=== PATIENT | male | born 1980 | race American Indian/Alaskan Native ===

== ENCOUNTER 2016-10-28 14:40 | Inpatient (IN) | payer OTHER ==
[2016-10-28 15:19] LABS: Basophils % (Auto) 0.3 % (0.0-1.8); Eosinophils % (Auto) 1.1 % (0.0-4.3); Hematocrit 49.1 % (35.5-45.6); Mean Corpuscular HGB Conc 33 % (32-34); Mean Corpuscular Hemoglobin 29 pg (28-32); Mean Corpuscular Volume 90 fl (84-94); Platelet Count 179 K/mm3 (140-440); Red Blood Count 5.44 M/mm3 (3.65-5.03); Red Cell Distribution Width 15.4 % (13.2-15.2); White Blood Count 10.9 K/mm3 (4.5-11.0)
[2016-10-28 15:38] LABS: Anion Gap 17 mmol/L; BUN/Creatinine Ratio 11.25; Blood Urea Nitrogen 9 mg/dL (9-20); Calcium 8.4 mg/dL (8.4-10.2); Carbon Dioxide 25 mmol/L (22-30); Chloride 100.7 mmol/L (98-107); Glucose 112 mg/dL (75-100); Potassium 4.1 mmol/L (3.6-5.0); Sodium 139 mmol/L (137-145)
[2016-10-28] MEDS ORDERED: TORADOL IV ONE (18:25)
--- NOTE | 2016-10-28 18:44 | Emergency Department Report ---
ED Chest Pain HPI - General Chief Complaint: Chest Pain Stated Complaint: CHEST PAIN/LUIS MANUEL Time Seen by Provider: 10/28/16 18:03 Source: patient Mode of arrival: Ambulatory Limitations: No Limitations - History of Present Illness Initial Comments: 36-year-old male with no past medical history is presented to the ED complaining of chest pain. Onset started 1 day prior to ED arrival. No inciting factors. Pain is located in the right side of the chest, nonradiating , no laxity or worsening factors. Patient states pain is constant. Pertinent negatives: Fever/chills, cough, hemoptysis, abdominal pain, lotion any edema, history of DVT/PE, history of ME. MD Complaint: chest pain -: Gradual, days(s) (1) Onset: during rest Pain Location: right chest Pain Radiation: none Severity: severe Severity scale (0 -10): 8 Quality: aching Consistency: constant Improves With: nothing Worsens With: nothing re: denies: nausea, vomting, diaphoresis, dyspnea, sense of impending doom Other Symptoms: denies: cough, fever, syncope, rash, acid taste in mouth, palpitations, burping - Related Data On Oral Contraceptives: No Home Medications Medication Instructions Recorded Confirmed Last Taken No Known Home Medications [No 10/28/16 10/28/16 Unknown Reported Home Medications] Allergies Allergy/AdvReac Type Severity Reaction Status Date / Time No Known Allergies Allergy Unverified 10/28/16 14:56 Heart Score - HEART Score History: Slightly suspicious EKG: Normal Age: < 45 Risk factors: No known risk factors Troponin: < normal limit HEART Score: 0 ED Review of Systems ROS: Stated complaint: CHEST PAIN/LUIS MANUEL Other details as noted in HPI Constitutional: denies: chills, fever Eyes: denies: eye pain, eye discharge, vision change ENT: denies: ear pain, throat pain Respiratory: denies: cough, shortness of breath, wheezing Cardiovascular: chest pain. denies: palpitations Endocrine: no symptoms reported Gastrointestinal: denies: abdominal pain, nausea, diarrhea Genitourinary: denies: urgency, dysuria Musculoskeletal: denies: back pain, joint swelling, arthralgia Skin: denies: rash, lesions Neurological: denies: headache, weakness, paresthesias Psychiatric: denies: anxiety, depression Hematological/Lymphatic: denies: easy bleeding, easy bruising ED Past Medical Hx - Past Medical History Previous Medical History?: No - Surgical History Past Surgical History?: No - Social History Smoking Status: Current Every Day Smoker Substance Use Type: None - Medications Home Medications: Home Medications Medication Instructions Recorded Confirmed Last Taken Type No Known Home Medications [No 10/28/16 10/28/16 Unknown History Reported Home Medications] ED Physical Exam - General Limitations: No Limitations General appearance: alert, in no apparent distress - Head Head exam: Present: atraumatic, normocephalic - Eye Eye exam: Present: normal appearance - ENT ENT exam: Present: mucous membranes moist - Neck Neck exam: Present: normal inspection - Respiratory Respiratory exam: Present: normal lung sounds bilaterally. Absent: respiratory distress - Cardiovascular Cardiovascular Exam: Present: regular rate, normal rhythm. Absent: systolic murmur, diastolic murmur, rubs, gallop - GI/Abdominal GI/Abdominal exam: Present: soft, normal bowel sounds - Rectal Rectal exam: Present: deferred - Extremities Exam Extremities exam: Present: normal inspection - Back Exam Back exam: Present: normal inspection - Neurological Exam Neurological exam: Present: alert, oriented X3 - Psychiatric Psychiatric exam: Present: normal affect, normal mood - Skin Skin exam: Present: warm, dry, intact, normal color. Absent: rash ED Course Vital Signs 10/28/16 10/28/16 10/28/16 14:56 17:50 17:52 Temperature 98.5 F 99.6 F Pulse Rate 87 85 86 Respiratory 18 23 19 Rate Blood Pressure 116/79 Blood Pressure 115/77 [Left] O2 Sat by Pulse 99 100 Oximetry 10/28/16 10/28/16 10/28/16 18:00 18:30 18:37 Temperature Pulse Rate 93 H 92 H Respiratory 20 22 18 Rate Blood Pressure 115/77 101/62 Blood Pressure [Left] O2 Sat by Pulse 100 100 100 Oximetry 10/28/16 10/28/16 19:00 19:33 Temperature Pulse Rate 82 80 Respiratory 22 Rate Blood Pressure 109/67 Blood Pressure [Left] O2 Sat by Pulse 100 Oximetry - Reevaluation(s) Reevaluation #1: 10/28/16 19:35 Patient states pain has improved and is resting comfortably. Concern there is a Barry's hump on chest x-ray right side before CT of the chest ordered to evaluate for PE vs PNA vs pleural effusion ED Medical Decision Making - Lab Data Result diagrams: 10/28/16 15:08 10/28/16 15:08 - EKG Data -: EKG Interpreted by Me EKG shows normal: sinus rhythm (83), axis (negative), intervals (qtc 425) Rate: normal - EKG Data When compared to previous EKG there are: previous EKG unavailable Interpretation: no acute changes - Radiology Data Radiology results: image reviewed Right greater than left lung segmental and subsegmental pulmonary emboli. Dr Cobb - Medical Decision Making 36 yo male presenting to ED with right sided chest pain. Pt CTA has BL pulm embolism. - Differential Diagnosis acs, pna Critical care attestation.: If time is entered above; I have spent that time in minutes in the direct care of this critically ill patient, excluding procedure time. ED Disposition Clinical Impression: Pulmonary embolism, Bilateral pulmonary embolism, Right-sided chest pain Disposition: OP ADMIT IP TO THIS HOSP Is pt being admited?: Yes Does the pt Need Aspirin: No Condition: Stable Instructions: Chest Pain (ED) Referrals: PRIMARY CARE, [Primary Care Provider] - 3-5 Days
[2016-10-28] MEDS ORDERED: NACL ONE (20:04)
--- NOTE | 2016-10-28 20:04 | XRay Report ---
FINAL REPORT PROCEDURE: XR CHEST ROUTINE 2V TECHNIQUE: PA and lateral chest radiographs were obtained. CPT 20493 HISTORY: Chest pain. COMPARISON: No prior studies are available for comparison. FINDINGS: Heart: Normal. Mediastinum/Vessels: Normal. Lungs/Pleural space: Diffuse right middle lobe consolidation with possible extension to the right lower lobe. Minimal blunting of the right costophrenic angle. Bony thorax: Small multilevel osteophytes. Other: IMPRESSION: Right middle lobe consolidation with possible extension to the right lower lobe. Possible trace right pleural effusion. Consider pneumonia. Recommend follow-up PA and lateral chest radiograph 2-[address] to exclude postobstructive process.
[2016-10-28] MEDS ORDERED: LEVAQUIN PO ONE (20:41)
--- NOTE | 2016-10-28 20:56 | Cat Scan Report ---
FINAL REPORT EXAM: CT ANGIO CHEST HISTORY: ? POSSIBLE CLARKE HUMP ON CXR right side TECHNIQUE: CT imaging obtained through the chest in pulmonary angiographic phase following intravenous administration of 100 cc Omnipaque 350 contrast. Transaxial, Coronal and sagittal reformats including maximal intensity projections are provided. PRIORS: Chest radiograph of the same date FINDINGS: Normal caliber main pulmonary artery. Segmental and subsegmental pulmonary emboli extend throughout right lower and middle lobe branches. Left upper and lower or subsegmental pulmonary emboli are also present. Right middle and lower lung airspace disease. Small right pleural effusion. No acute left lung finding. Subpleural blebs are present. Anterior left upper lung subpleural ground-glass nodularity measures up to 9 millimeters on axial series 3, image 68 and 6 millimeters on axial image 73. No pneumothorax. Thoracic aorta is normal in course and caliber. No pneumothorax, effusion or focal airspace disease. The central airways are patent. No bronchiectasis. Imaged portion of the upper abdomen is unremarkable. The superficial soft tissues are remarkable for mild gynecomastia. No acute bony abnormality or worrisome osseous lesions identified. IMPRESSION: Right greater than left lung segmental and subsegmental pulmonary emboli as detailed above. Airspace disease in the right middle and lower lung is likely secondary to pulmonary infarction. Anterior left upper lung subpleural ground-glass nodularity is most likely benign. Follow-up CT 6-12 months is recommended to document stability/resolution. Dr. Cobb discussed findings with Dr. Mcgarry at [facility] following the examination.
[2016-10-28] MEDS: HEPARIN/ 0.45% NACL-25,000 UNIT/500 ML 25,000 UNIT/500 ML BAG IV SCH (21:19)
[2016-10-28 21:58] LABS: Hematocrit 44.9 % (35.5-45.6)
[2016-10-28 22:13] LABS: INR 1.03 (0.87-1.13)
[2016-10-28 22:14] LABS: Partial Thromboplastin Time 33.2 Sec. (24.2-36.6)
[2016-10-28] MEDS ORDERED: MILK OF MAGNESIA PO PRN (23:23)
[2016-10-28] MEDS ORDERED: ZOFRAN IV PRN (23:23)
[2016-10-28] MEDS ORDERED: TYLENOL PO PRN (23:23)
[2016-10-28] MEDS ORDERED: DULCOLAX PR PRN (23:23)
--- NOTE | 2016-10-28 23:23 | History and Physical Report ---
History of Present Illness Date of examination: 10/28/16 Date of admission: 10/28/2016 Chief complaint: Chief complaint: Chest pain and shortness of breath for 1 week off and on. History of present illness: History of present illness: 36-year-old -[place] male comes in for increasing shortness of breath on minimal exertion for 1 week. Also bilateral chest pain with exertion. No orthopnea. No recent travel. No past medical history of pulmonary embolism. No cough tenderness or swelling. Pain is about 6 a scale of 1-10. Nonradiating. No diaphoresis or palpitations. No paroxysmal nocturnal dyspnea. No hypertension. - Past Medical History Previous Medical History?: No - Surgical History Past Surgical History?: No - Social History Smoking Status: Current Every Day Smoker Substance Use Type: None - Medications Home Medications: Family history: Hypertension Home Medications Medication Instructions Recorded Confirmed Last Taken Type No Known Home Medications [No 10/28/16 10/28/16 Unknown History Reported Home Medications] ROS: Stated complaint: CHEST PAIN/LUIS MANUEL Other details as noted in HPI Constitutional: denies: chills, fever Eyes: denies: eye pain, eye discharge, vision change ENT: denies: ear pain, throat pain Respiratory: denies: cough, shortness of breath, wheezing Cardiovascular: chest pain. denies: palpitations Endocrine: no symptoms reported Gastrointestinal: denies: abdominal pain, nausea, diarrhea Genitourinary: denies: urgency, dysuria Musculoskeletal: denies: back pain, joint swelling, arthralgia Skin: denies: rash, lesions Neurological: denies: headache, weakness, paresthesias Psychiatric: denies: anxiety, depression Hematological/Lymphatic: denies: easy bleeding, easy bruising Medications and Allergies Allergies Allergy/AdvReac Type Severity Reaction Status Date / Time No Known Allergies Allergy Unverified 10/28/16 14:56 Home Medications Medication Instructions Recorded Confirmed Last Taken Type No Known Home Medications [No 10/28/16 10/28/16 Unknown History Reported Home Medications] Active Meds: Active Medications Heparin Sodium/Sodium Chloride (Heparin/ 0.45% Nacl-25,000 Unit/500 Ml) 25,000 unit in 500 mls @ 24 mls/hr IV TITR JORY; 1,200 UNITS/HR PRN Reason: Protocol Last Admin: 10/28/16 21:19 Dose: 1,200 units/hr, 24 mls/hr Review of Systems All systems: negative Exam - Physical Exam Narrative exam: In mild respiratory distress - Constitutional Vitals: Temp Pulse Resp BP Pulse Ox 99.6 F 87 17 125/86 100 10/28/16 17:50 10/28/16 21:00 10/28/16 21:00 10/28/16 21:00 10/28/16 21:00 General appearance: Present: no acute distress, well-nourished - EENT Eyes: Present: PERRL ENT: hearing intact, clear oral mucosa - Neck Neck: Present: supple, normal ROM - Respiratory Respiratory effort: normal Respiratory: bilateral: CTA - Cardiovascular Heart Sounds: Present: S1 & S2. Absent: rub, click - Extremities Extremities: pulses symmetrical, No edema Peripheral Pulses: within normal limits - Abdominal General gastrointestinal: Present: soft, non-tender, non-distended, normal bowel sounds Male genitourinary: Present: normal - Integumentary Integumentary: Present: clear, warm, dry - Musculoskeletal Musculoskeletal: gait normal, strength equal bilaterally - Psychiatric Psychiatric: appropriate mood/affect, intact judgment & insight - Neurologic Neurologic: CNII-XII intact, moves all extremities Results - Labs CBC & Chem 7: 10/28/16 23:31 10/28/16 15:08 Labs: Laboratory Last Values WBC 10.9 K/mm3 (4.5-11.0) 10/28/16 15:08 RBC 5.44 M/mm3 (3.65-5.03) H 10/28/16 15:08 Hgb 15.0 gm/dl (11.8-15.2) 10/28/16 21:40 Hct 44.9 % (35.5-45.6) 10/28/16 21:40 MCV 90 fl (84-94) 10/28/16 15:08 MCH 29 pg (28-32) 10/28/16 15:08 MCHC 33 % (32-34) 10/28/16 15:08 RDW 15.4 % (13.2-15.2) H 10/28/16 15:08 Plt Count 175 K/mm3 (140-440) 10/28/16 21:40 Lymph % (Auto) 13.7 % (13.4-35.0) 10/28/16 15:08 [place] % (Auto) 10.8 % (0.0-7.3) H 10/28/16 15:08 Eos % (Auto) 1.1 % (0.0-4.3) 10/28/16 15:08 Baso % (Auto) 0.3 % (0.0-1.8) 10/28/16 15:08 Lymph # 1.5 K/mm3 (1.2-5.4) 10/28/16 15:08 [place] # 1.2 K/mm3 (0.0-0.8) H 10/28/16 15:08 Eos # 0.1 K/mm3 (0.0-0.4) 10/28/16 15:08 Baso # 0.0 K/mm3 (0.0-0.1) 10/28/16 15:08 Seg Neutrophils % 74.1 % (40.0-70.0) H 10/28/16 15:08 Seg Neutrophils # 8.0 K/mm3 (1.8-7.7) H 10/28/16 15:08 PT 14.0 Sec. (12.2-14.9) 10/28/16 21:40 INR 1.03 (0.87-1.13) 10/28/16 21:40 APTT 33.2 Sec. (24.2-36.6) 10/28/16 21:40 Sodium 139 mmol/L (137-145) 10/28/16 15:08 Potassium 4.1 mmol/L (3.6-5.0) 10/28/16 15:08 Chloride 100.7 mmol/L (98-107) 10/28/16 15:08 Carbon Dioxide 25 mmol/L (22-30) 10/28/16 15:08 Anion Gap 17 mmol/L 10/28/16 15:08 BUN 9 mg/dL (9-20) 10/28/16 15:08 Creatinine 0.8 mg/dL (0.8-1.5) 10/28/16 15:08 Estimated GFR > 60 ml/min 10/28/16 15:08 BUN/Creatinine Ratio 11.25 % 10/28/16 15:08 Glucose 112 mg/dL (75-100) H 10/28/16 15:08 Calcium 8.4 mg/dL (8.4-10.2) 10/28/16 15:08 Troponin T < 0.010 ng/mL (0.00-0.029) 10/28/16 21:40 Short CBC 10/28/16 10/28/16 Range/Units 15:08 21:40 WBC 10.9 (4.5-11.0) K/mm3 Hgb 16.0 H 15.0 (11.8-15.2) gm/dl Hct 49.1 H 44.9 (35.5-45.6) % Plt Count 179 175 (140-440) K/mm3 BMP 10/28/16 15:08 Sodium 139 Potassium 4.1 Chloride 100.7 Carbon Dioxide 25 BUN 9 Creatinine 0.8 Glucose 112 H Calcium 8.4 Cardiac Enzymes 10/28/16 10/28/16 10/28/16 Range/Units 15:08 19:00 21:40 Troponin T < 0.010 < 0.010 < 0.010 (0.00-0.029) ng/mL - Imaging and Cardiology EKG: report reviewed (sinus tachycardia heart rate of 110/m) CT scan - chest: report reviewed (bilateral pulmonary emboli segmental and subsegmental. Also few pulmonary infarcts) Assessment and Plan Advance Directives: Yes (full code) Plan of care discussed with patient/family: Yes - Patient Problems (1) Bilateral pulmonary embolism Current Visit: Yes Status: Acute Plan to address problem: Patient started on IV heparin per protocol and also Coumadin. If Xarelto can be made available by a free coupon system then will switch to Xarelto on discharge. Patient does not have insurance and needs to be on Coumadin and follow up with [facility]. We will try to arrange for Xarelto from the office. Protein Cand S antigen ordered. (2) Right-sided chest pain Current Visit: Yes Status: Acute Plan to address problem: Secondary to pulmonary embolism. Lexiscan not ordered (3) Nicotine dependence Current Visit: Yes Status: Chronic Qualifiers: Nicotine product type: cigarettes Substance use status: S Plan to address problem: NicoDerm patch initiated (4) DVT prophylaxis Current Visit: Yes Status: Acute Plan to address problem: Patient on heparin drip
[2016-10-28 23:48] LABS: Hematocrit 45.1 % (35.5-45.6); Hemoglobin 15.3 gm/dl (11.8-15.2)
[2016-10-29 00:05] LABS: INR 1.02 (0.87-1.13); Partial Thromboplastin Time 35.3 Sec. (24.2-36.6)
[2016-10-29] MEDS: DILAUDID IV PRN ×4 (00:42→20:04)
[2016-10-29] MEDS: D5NS 1,000 ML IV SCH ×2 (00:49→11:22)
[2016-10-29] MEDS: PERCOCET 5/325 PO PRN ×3 (05:50→17:30)
[2016-10-29 06:19] LABS: Basophils % (Auto) 0.5 % (0.0-1.8); Eosinophils % (Auto) 1.1 % (0.0-4.3); Hematocrit 43.7 % (35.5-45.6); Hemoglobin 14.6 gm/dl (11.8-15.2); Mean Corpuscular HGB Conc 34 % (32-34); Mean Corpuscular Hemoglobin 29 pg (28-32); Mean Corpuscular Volume 88 fl (84-94); Platelet Count 157 K/mm3 (140-440); Red Blood Count 4.97 M/mm3 (3.65-5.03); Red Cell Distribution Width 15.1 % (13.2-15.2); White Blood Count 9.1 K/mm3 (4.5-11.0)
[2016-10-29 06:34] LABS: Alanine Aminotransferase 28 units/L (7-56); Albumin/Globulin Ratio 0.8 %; Alkaline Phosphatase 126 units/L (35-129); Anion Gap 16 mmol/L; Blood Urea Nitrogen 10 mg/dL (9-20); Calcium 8.2 mg/dL (8.4-10.2); Carbon Dioxide 24 mmol/L (22-30); Chloride 99.9 mmol/L (98-107); Glucose 122 mg/dL (75-100); Potassium 3.7 mmol/L (3.6-5.0); Sodium 136 mmol/L (137-145); Total Protein 6.6 g/dL (6.3-8.2)
[2016-10-29] MEDS ORDERED: HEPARIN 10,000 UNITS/10 ML IV ONE (07:09)
--- NOTE | 2016-10-29 08:13 | Admit Criteria Form ---
Admission Criteria Documentation: CHEST PAIN Clinical Indications for Admission to Inpatient Care (Place 'X' for any and all applicable criteria): Admission is indicated for chest pain and ANY ONE of the following(1)(2)(3)(4)(5 ): [ ]I. Angina with acute coronary syndrome (Also use Myocardial Infarction or Angina guideline) [ ]II. Hemodynamic instability [ ]III. Angina needing acute intervention as indicated by ALL of the following( 11)(12): [ ]a) Unstable angina is present as indicated by angina that is ANY ONE of the following: [ ]i) New onset [ ]ii) Nocturnal [ ]iii) Prolonged at rest [ ]iv) Progressive [ ]b) Angina warrants acute intervention as indicated by ANY ONE of the following: [ ]i) Recurrent angina (e.g, not responding as previously to treatment) [ ]ii) Angina at rest or with low-level activities despite initial medical therapy [ ]iii) New or presumably new ST-segment depression on ECG [ ]iv) Signs or symptoms of heart failure (eg, dyspnea, pulmonary edema) [ ]v) New or worsening mitral regurgitation [ ]vi) Hemodynamic instability [ ]vii) Dangerous arrhythmia (eg, sustained ventricular tachycardia) [ ]viii) History of percutaneous coronary intervention within 6 months [ ]ix) History of coronary artery bypass graft surgery [ ]x) GEN risk score of 2 or greater[A] [ ]xi) History of Diabetes(14) [ ]xii) High-risk cardiac ischemia findings on noninvasive testing (e.g, echocardiogram, treadmill testing, nuclear scan) [ ]xiii) Chronic renal insufficiency (ie, estimated GFR less than 60 mL/min/1.732m) [ ]xiv) Left ventricular ejection fraction less than 40% [ ]IV. Evidence of FL (eg, cardiac biomarkers positive, ST-segment elevation on ECG) also use Myocardial Infarction Criteria Form. [ ]V. Pulmonary edema [ ]. Respiratory distress [ ]VII. Chest pain indicative of serious diagnosis other than coronary artery disease (eg, aortic dissection) [ X]VIII. Contraindications and/or Inappropriate clinical situations for Observational Care in patients with Chest Pain, when ANY ONE of the following is required: [ ]a) Patient with risk factor for pulmonary embolism, acute coronary syndrome and myocardial infarction (18) [X ]b) Patient with Pulmonary embolism require an average LOS of 4.3 days, therefore emergency department observation management is inappropriate 18,23 [ ]c) Painful condition/s in the elderly, have the highest rate of recidivism after emergency department observation management (10.8%) 20,21,22 [ ]d) Elevated cardiac biomarker requires intensive and exhaustive care (19) [ ]IX. General contraindications and/or Inappropriate clinical situations for Observational Care in patients with Chest Pain, when ANY ONE of the following is required: [ ]a) Prediction of prolongation of LOS based on ANY ONE of the following may be considered as a contraindication for observational care 2, 3, 4, 5, 6, 7, 8, 9, 10, 11 [ ]i) Age > 65 yrs. [ ]ii) Patient arriving by ambulance [ ]iii) Patient with high acuity [ ]iv) Patient requiring vital sign monitoring [ ]v) Patient on IV medication [ ]b) Systolic blood pressures 180mmHg 3,12 [ ]c) Patient with altered mental status including delirium and other alteration of consciousness, (3) [ ]d) Patient whose discharge disposition will be to a usp home or rehabilitation home should not be managed in Emergency Department Observation Unit. CMS rule requires 3 days hospital stay before such placement. 3,13 [ ]e) Patient with failure to thrive due to broad array of etiologies 3,16,17 [ ]f) Inability to ambulate 3,14 Extended stay beyond goal length of stay may be needed for (1)(28): [ ]a) Specific condition diagnosed after evaluation (eg, pulmonary embolism, aortic dissection) [ ]b) Unstable angina [ ]c) Continued suspicion of acute coronary syndrome with inability to complete needed cardiac evaluation (eg, patient clinically unable to undergo stress testing) [ ]d) Myocardial infarction (Contents from ANGINA and CHEST PAIN clinical indications for admission to inpatient care have been integrated in this form) The original [facility] content created by [email or web address] has been revised. The portions of the content which have been revised are identified through the use of italic text or in bold, and [facility] has neither reviewed nor approved the modified material. All other unmodified content is copyright [facility]. Please see references footnoted in the original [facility] edition 2016 Admission Criteria Met: Yes
[2016-10-29] MEDS: HABITROL TD SCH (09:19)
[2016-10-29] MEDS ORDERED: PNEUMOVAX 23 IM ONE (12:00)
--- NOTE | 2016-10-29 14:07 | Consultation ---
History of Present Illness Consult date: 10/29/16 Requesting physician: ELENI RESENDEZ Reason for consult: pulmonary embolism History of present illness: 36 yo with no significant prior med hx. Has had 3 days or so of increased SOB and pleuritic R anterior chest pain + fever. No cough, sputum, hemoptysis. No immobility, travel, trauma, hx of VTE although his mother has hx of VTE. Active Medications Acetaminophen (Tylenol) 650 mg PO Q4H PRN PRN Reason: Pain MILD(1-3)/Fever >100.5/VÁZQUEZ Bisacodyl (Dulcolax) 10 mg [place] QDAY PRN PRN Reason: Constipation unrelieved by MOM Hydromorphone HCl (Dilaudid) 0.5 mg IV Q3H PRN PRN Reason: Pain , Severe (7-10) Last Admin: 10/29/16 09:20 Dose: 0.5 mg Heparin Sodium/Sodium Chloride (Heparin/ 0.45% Nacl-25,000 Unit/500 Ml) 25,000 unit in 500 mls @ 24 mls/hr IV TITR JORY; 1,200 UNITS/HR PRN Reason: Protocol Last Titration: 10/29/16 07:49 Dose: 1,450 units/hr, 29 mls/hr Dextrose/Sodium Chloride (D5ns) 1,000 mls @ 100 mls/hr IV DIRECT JORY Last Admin: 10/29/16 11:22 Dose: 100 mls/hr Magnesium Hydroxide (Milk Of Magnesia) 30 ml PO Q4H PRN PRN Reason: Constipation Nicotine (Habitrol) 21 mg TD QDAY [facility] Last Admin: 10/29/16 09:19 Dose: 21 mg Ondansetron HCl (Zofran) 4 mg IV Q8H PRN PRN Reason: N/V unrelieved by Reglan Oxycodone/Acetaminophen (Percocet 5/325) 1 tab PO Q6H PRN PRN Reason: Pain, Moderate (4-6) Last Admin: 10/29/16 11:07 Dose: 1 tab Warfarin Sodium (Coumadin Pharmacy To Dose) 1 each PO PKCONSULT JORY PRN Reason: Protocol Warfarin Sodium (Coumadin) 10 mg PO DAILY@1700 JORY Past History Past Medical History: other (none) Past Surgical History: Other (none) Social history: smoking, full code. denies: alcohol abuse, prescription drug abuse, IV drug use Family history: other (+ VTE mother) Medications and Allergies Allergies Allergy/AdvReac Type Severity Reaction Status Date / Time No Known Allergies Allergy Unverified 10/28/16 14:56 Home Medications Medication Instructions Recorded Confirmed Last Taken Type No Known Home Medications [No 10/28/16 10/28/16 Unknown History Reported Home Medications] Active Meds: Active Medications Acetaminophen (Tylenol) 650 mg PO Q4H PRN PRN Reason: Pain MILD(1-3)/Fever >100.5/V[place]ZQUEZ Bisacodyl (Dulcolax) 10 mg [place] QDAY PRN PRN Reason: Constipation unrelieved by MOM Hydromorphone HCl (Dilaudid) 0.5 mg IV Q3H PRN PRN Reason: Pain , Severe (7-10) Last Admin: 10/29/16 09:20 Dose: 0.5 mg Heparin Sodium/Sodium Chloride (Heparin/ 0.45% Nacl-25,000 Unit/500 Ml) 25,000 unit in 500 mls @ 24 mls/hr IV TITR JORY; 1,200 UNITS/HR PRN Reason: Protocol Last Titration: 10/29/16 07:49 Dose: 1,450 units/hr, 29 mls/hr Dextrose/Sodium Chloride (D5ns) 1,000 mls @ 100 mls/hr IV DIRECT JORY Last Admin: 10/29/16 11:22 Dose: 100 mls/hr Magnesium Hydroxide (Milk Of Magnesia) 30 ml PO Q4H PRN PRN Reason: Constipation Nicotine (Habitrol) 21 mg TD QDAY [facility] Last Admin: 10/29/16 09:19 Dose: 21 mg Ondansetron HCl (Zofran) 4 mg IV Q8H PRN PRN Reason: N/V unrelieved by Reglan Oxycodone/Acetaminophen (Percocet 5/325) 1 tab PO Q6H PRN PRN Reason: Pain, Moderate (4-6) Last Admin: 10/29/16 11:07 Dose: 1 tab Warfarin Sodium (Coumadin Pharmacy To Dose) 1 each PO PKCONSULT JORY PRN Reason: Protocol Warfarin Sodium (Coumadin) 10 mg PO DAILY@1700 JORY Review of Systems All systems: negative Physical Examination Vital signs: Vital Signs Temp Pulse Resp BP Pulse Ox 98.5 F 87 18 116/79 99 10/28/16 14:56 10/28/16 14:56 10/28/16 14:56 10/28/16 14:56 10/28/16 14:56 General appearance: no acute distress, alert Eyes: non-icteric ENT: oropharynx moist Neck: supple Effort: normal Ascultation: Right: diminished breath sounds (base) Cardiovascular: regular rate and rhythm (no mrg) Gastrointestinal: normoactive bowel sounds, soft, non-tender, non-distended Integumentary: normal Extremities: no cyanosis, no edema, pink and warm Musculoskeletal: no deformities normal mental status, non-focal exam, pupils equal and round, CN II-XII normal mood appropriate, affect normal Results - Laboratory Findings CBC and BMP: 10/29/16 05:20 10/29/16 05:20 PT/INR, D-dimer PT 13.9 Sec. (12.2-14.9) 10/28/16 23:31 INR 1.02 (0.87-1.13) 10/28/16 23:31 Abnormal lab findings: Abnormal Labs 10/29/16 10/29/16 10/29/16 05:20 05:20 05:20 [place] % (Auto) 14.8 H [place] # 1.3 H Heparin Anti-Xa Level < 0.10 L Sodium 136 L Glucose 122 H Calcium 8.2 L AST 48 H Albumin 3.0 L - Diagnostic Findings Chest x-ray: report reviewed, image reviewed CT scan - chest: report reviewed, image reviewed Assessment and Plan Imp: 1. Extensive idiopathic PE w/ RLL pulm infarct -> fever/pleurisy 2. Chronic nicotine dependence, cigs Rec: 1. Heparin/Coumadin 2. LE dopplers 3. Hemodynamically stable on RA 4. Hematology consult; needs hypercoag work-up 5. Stop smoking 6. Monitor RLL infiltrate/infarct with serial CXRs Plan of care reviewed w/ patient, he understands/agrees Thanks for the consult.
--- NOTE | 2016-10-29 14:25 | Progress Note ---
Assessment and Plan Assessment and plan: Acute pulmonary embolism,bilateral. He is admitted to telemetry. Started on heparin drip and Coumadin. Discussed with patient and mother at bedside. Mother also has history of multiple venous thromboembolism, and is on Coumadin. Consult Gang Mower Operator for hypercoagulability workup Pulmonary Infarction. Full code status History Interval history: Chest pain, Shortness of breath Hospitalist Physical - Physical exam Narrative exam: Gen Appearance: No acute distress, HEENT: normocephalic, atraumatic Neck: supple, no JVD Lungs: Clear to auscultation bilaterally, no wheeze. Heart: S1 and S2 regular, no murmurs, no rubs , no gallop Abdomen: Soft ,non-tender, non-distended, normal bowel sounds Extremity: No edema, clubbing or cyanosis Neuro : Awake, alert,oriented x3 , No focal neurological signs. - Constitutional Vitals: Temp Pulse Resp BP Pulse Ox 99.3 F 80 18 111/72 96 10/29/16 08:10 10/29/16 08:10 10/29/16 08:10 10/29/16 08:10 10/29/16 09:20 General appearance: Present: no acute distress, well-nourished Results - Labs CBC & Chem 7: 10/29/16 05:20 10/29/16 05:20 Labs: Laboratory Last Values WBC 9.1 K/mm3 (4.5-11.0) 10/29/16 05:20 RBC 4.97 M/mm3 (3.65-5.03) 10/29/16 05:20 Hgb 14.6 gm/dl (11.8-15.2) 10/29/16 05:20 Hct 43.7 % (35.5-45.6) 10/29/16 05:20 MCV 88 fl (84-94) 10/29/16 05:20 MCH 29 pg (28-32) 10/29/16 05:20 MCHC 34 % (32-34) 10/29/16 05:20 RDW 15.1 % (13.2-15.2) 10/29/16 05:20 Plt Count 157 K/mm3 (140-440) 10/29/16 05:20 Lymph % (Auto) 16.8 % (13.4-35.0) 10/29/16 05:20 [place] % (Auto) 14.8 % (0.0-7.3) H 10/29/16 05:20 Eos % (Auto) 1.1 % (0.0-4.3) 10/29/16 05:20 Baso % (Auto) 0.5 % (0.0-1.8) 10/29/16 05:20 Lymph # 1.5 K/mm3 (1.2-5.4) 10/29/16 05:20 [place] # 1.3 K/mm3 (0.0-0.8) H 10/29/16 05:20 Eos # 0.1 K/mm3 (0.0-0.4) 10/29/16 05:20 Baso # 0.0 K/mm3 (0.0-0.1) 10/29/16 05:20 Seg Neutrophils % 66.8 % (40.0-70.0) 10/29/16 05:20 Seg Neutrophils # 6.1 K/mm3 (1.8-7.7) 10/29/16 05:20 PT 13.9 Sec. (12.2-14.9) 10/28/16 23:31 INR 1.02 (0.87-1.13) 10/28/16 23:31 APTT 35.3 Sec. (24.2-36.6) 10/28/16 23:31 Heparin Anti-Xa Level < 0.10 U.I./ml (0.3-0.7) L 10/29/16 05:20 Sodium 136 mmol/L (137-145) L 10/29/16 05:20 Potassium 3.7 mmol/L (3.6-5.0) 10/29/16 05:20 Chloride 99.9 mmol/L (98-107) 10/29/16 05:20 Carbon Dioxide 24 mmol/L (22-30) 10/29/16 05:20 Anion Gap 16 mmol/L 10/29/16 05:20 BUN 10 mg/dL (9-20) 10/29/16 05:20 Creatinine 0.8 mg/dL (0.8-1.5) 10/29/16 05:20 Estimated GFR > 60 ml/min 10/29/16 05:20 BUN/Creatinine Ratio 12.50 % 10/29/16 05:20 Glucose 122 mg/dL (75-100) H 10/29/16 05:20 Calcium 8.2 mg/dL (8.4-10.2) L 10/29/16 05:20 Total Bilirubin 0.80 mg/dL (0.1-1.2) 10/29/16 05:20 AST 48 units/L (5-40) H 10/29/16 05:20 ALT 28 units/L (7-56) 10/29/16 05:20 Alkaline Phosphatase 126 units/L (35-129) 10/29/16 05:20 Troponin T < 0.010 ng/mL (0.00-0.029) 10/28/16 21:40 Total Protein 6.6 g/dL (6.3-8.2) 10/29/16 05:20 Albumin 3.0 g/dL (3.9-5) L 10/29/16 05:20 Albumin/Globulin Ratio 0.8 % 10/29/16 05:20
[2016-10-29] MEDS ORDERED: COUMADIN PO SCH (17:00)
[2016-10-29] MEDS: HEPARIN/ 0.45% NACL-25,000 UNIT/500 ML 25,000 UNIT/500 ML BAG IV SCH (20:16)
--- NOTE | 2016-10-29 21:30 | Consultation ---
History of Present Illness - Reason for Consult Consult date: 10/29/16 B/L pulm embolism Requesting physician: ELENI RESENDEZ - History of Present Illness Thank you for this consult, patient seen/examined, record reviewed, case d/w patient, and his family at the bed side. kindly asked to see this patient for the reason above. Patient presented with SOB/CP, w/up resulted in acute Pulm embolism, multiple. He is currently on IV heparin, and is already started on coumadin this evening. 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 I wished that he had not been started on coumadin, before the consult, as coumadin will trow off the testings. Past History Past Medical History: other (none) Past Surgical History: Other (none) Social history: smoking, full code. denies: alcohol abuse, prescription drug abuse, IV drug use Family history: no significant family history, other (+ VTE mother) Medications and Allergies Allergies Allergy/AdvReac Type Severity Reaction Status Date / Time No Known Allergies Allergy Unverified 10/28/16 14:56 Home Medications Medication Instructions Recorded Confirmed Last Taken Type No Known Home Medications [No 10/28/16 10/28/16 Unknown History Reported Home Medications] Active Meds: Active Medications Acetaminophen (Tylenol) 650 mg PO Q4H PRN PRN Reason: Pain MILD(1-3)/Fever >100.5/VÁZQUEZ Bisacodyl (Dulcolax) 10 mg [place] QDAY PRN PRN Reason: Constipation unrelieved by MOM Hydromorphone HCl (Dilaudid) 0.5 mg IV Q3H PRN PRN Reason: Pain , Severe (7-10) Last Admin: 10/29/16 20:04 Dose: 0.5 mg Heparin Sodium/Sodium Chloride (Heparin/ 0.45% Nacl-25,000 Unit/500 Ml) 25,000 unit in 500 mls @ 24 mls/hr IV TITR JORY; 1,200 UNITS/HR PRN Reason: Protocol Last Admin: 10/29/16 20:16 Dose: 1,450 units/hr, 29 mls/hr Dextrose/Sodium Chloride (D5ns) 1,000 mls @ 100 mls/hr IV DIRECT JORY Last Admin: 10/29/16 11:22 Dose: 100 mls/hr Magnesium Hydroxide (Milk Of Magnesia) 30 ml PO Q4H PRN PRN Reason: Constipation Nicotine (Habitrol) 21 mg TD QDAY [facility] Last Admin: 10/29/16 09:19 Dose: 21 mg Ondansetron HCl (Zofran) 4 mg IV Q8H PRN PRN Reason: N/V unrelieved by Reglan Oxycodone/Acetaminophen (Percocet 5/325) 1 tab PO Q6H PRN PRN Reason: Pain, Moderate (4-6) Last Admin: 10/29/16 17:30 Dose: 1 tab Warfarin Sodium (Coumadin Pharmacy To Dose) 1 each PO PKCONSULT [facility] PRN Reason: Protocol Warfarin Sodium (Coumadin) 10 mg PO DAILY@1700 [facility] Last Admin: 10/29/16 16:47 Dose: 10 mg Review of Systems Respiratory: shortness of breath, pain Exam - Constitutional Vitals: Temp Pulse Resp BP Pulse Ox 98.6 F 97 H 18 115/75 98 10/29/16 14:50 10/29/16 17:53 10/29/16 20:34 10/29/16 14:50 10/29/16 14:50 General appearance: Present: mild distress, well-nourished - EENT Eyes: Present: PERRL ENT: hearing intact, clear oral mucosa - Neck Neck: Present: supple, normal ROM - Respiratory Respiratory effort: normal Respiratory: bilateral: rhonchi - Cardiovascular Heart Sounds: Present: S1 & S2. Absent: rub, click - Extremities Extremities: pulses symmetrical, No edema Peripheral Pulses: within normal limits - Abdominal General gastrointestinal: Present: soft, non-tender, non-distended, normal bowel sounds Male genitourinary: Present: deferred - Rectal Rectal Exam: deferred - Integumentary Integumentary: Present: clear, warm, dry - Musculoskeletal Musculoskeletal: gait normal, strength equal bilaterally - Psychiatric Psychiatric: appropriate mood/affect, intact judgment & insight - Neurologic Neurologic: CNII-XII intact, moves all extremities Results - Labs CBC & Chem 7: 10/29/16 05:20 10/29/16 05:20 Labs: Abnormal lab results 10/29/16 10/29/16 10/29/16 Range/Units 05:20 05:20 05:20 [place] % (Auto) 14.8 H (0.0-7.3) % [place] # 1.3 H (0.0-0.8) K/mm3 Heparin Anti-Xa Level < 0.10 L (0.3-0.7) U.I./ml Sodium 136 L (137-145) mmol/L Glucose 122 H (75-100) mg/dL Calcium 8.2 L (8.4-10.2) mg/dL AST 48 H (5-40) units/L Albumin 3.0 L (3.9-5) g/dL Assessment and Plan - Patient Problems (1) Bilateral pulmonary embolism Current Visit: Yes Status: Acute Plan to address problem: Continue with anticoagulation, see orders. (2) Right-sided chest pain Current Visit: Yes Status: Acute Plan to address problem: This is part of his PE., continue pain control.
[2016-10-30] MEDS: D5NS 1,000 ML IV SCH (02:42)
[2016-10-30] MEDS: PERCOCET 5/325 PO PRN ×2 (03:13→10:04)
[2016-10-30] MEDS: DILAUDID IV PRN ×2 (06:46)
[2016-10-30 06:52] LABS: Hematocrit 43.6 % (35.5-45.6); Hemoglobin 14.3 gm/dl (11.8-15.2); Mean Corpuscular HGB Conc 33 % (32-34); Mean Corpuscular Hemoglobin 29 pg (28-32); Mean Corpuscular Volume 89 fl (84-94); Platelet Count 160 K/mm3 (140-440); Red Blood Count 4.89 M/mm3 (3.65-5.03); Red Cell Distribution Width 15.1 % (13.2-15.2); White Blood Count 9.9 K/mm3 (4.5-11.0)
[2016-10-30 07:11] LABS: INR 1.09 (0.87-1.13)
[2016-10-30 07:32] LABS: Anion Gap 14 mmol/L; Blood Urea Nitrogen 4 mg/dL (9-20); Calcium 8.1 mg/dL (8.4-10.2); Carbon Dioxide 25 mmol/L (22-30); Chloride 102.6 mmol/L (98-107); Glucose 120 mg/dL (75-100); Potassium 3.7 mmol/L (3.6-5.0); Sodium 138 mmol/L (137-145)
[2016-10-30] MEDS: HABITROL TD SCH (09:27)
--- NOTE | 2016-10-30 10:03 | Discharge Summary ---
Providers - Providers Date of Admission: 10/28/16 23:39 Date of discharge: 10/30/16 Attending physician: ELENI RESENDEZ 10/29/16 07:41 Consult to Physician [CONS] Routine Consulting Provider: LUCIANO SIMPSON Reason For Exam: Acute bilat pulm embolism,ground glass lesion Place consult to:: DR. 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 Hospitalization Condition: Stable Disposition: DC-30 STILL A PATIENT - Discharge Diagnoses (1) Bilateral pulmonary embolism Status: Acute Core Measure Documentation - Palliative Care Palliative Care/ Comfort Measures: Not Applicable - Core Measures Any of the following diagnoses?: DVT/PE - VTE Discharge Requirements Deep Vein Thrombosis/Pulmonary Embolism Present on Admission: Yes Has pt received <5 days of overlap therapy or INR<2.0: Yes Anticoagulant overlap therapy prescribed at discharge: No Contraindication No Overlap Therapy order at DC: Not Indicated (On Xarelto) Exam - Constitutional Vitals: Temp Pulse Resp BP Pulse Ox 98.9 F 84 18 104/61 96 10/30/16 08:05 10/30/16 08:05 10/30/16 08:05 10/30/16 08:05 10/30/16 08:05 Plan Activity: advance as tolerated Diet: regular Additional Instructions: 1.Follow up with Dr. Harper in 1 week. 2.Follow up with Dr. Mackenzie in 1 week. 3.No driving while on Percocet. 4.May return to work on Tuesday11/08/16. Follow up with: PRIMARY CARE, [Primary Care Provider] - 3-5 Days Forms: Warfarin Discharge Instruction Prescriptions: Famotidine [Pepcid] 20 mg PO BID #60 tablet oxyCODONE /ACETAMINOPHEN [Percocet 5/325 mg] 1 tab PO Q6H PRN #20 tablet PRN Reason: Pain, Moderate (4-6) Rivaroxaban [Xarelto] 15 mg PO BID 21 Days
[2016-10-30] MEDS ORDERED: XARELTO PO SCH (13:00)
[2016-10-30 14:33] VITALS: BP 122/83
--- NOTE | 2016-11-01 08:24 | Vascular Lab Report ---
LOWER EXTREMITY VENOUS DUPLEX: REASON FOR EXAM: Pulmonary embolism. COMMENTS ON THE RIGHT: All veins visualized are freely compressible without evidence of internal echogenicity. Flow is spontaneous and phasic throughout. COMMENTS ON THE LEFT: All deep veins visualized are freely compressible without evidence of internal echogenicity. Flow is spontaneous and phasic throughout. Superficial thrombophlebitis is noted in the greater saphenous vein IMPRESSION: Left lower extremity superficial thrombophlebitis. No evidence of deep venous thrombosis bilaterally.
[2016-11-01 13:40] LABS: Protein S, Free 79 % normal (57-171); Protein S, Total 91 % (70-140)
== END 2016-10-30 15:00 | disposition home or self-care (01) | DRG 175 ==
LOC: ED 14:40 → 3A 23:39
PROVIDERS: ADMIT Internal Medicine; ATTEND Internal Medicine
PROC: 3E0234Z Introduction of Serum, Toxoid and Vaccine into Muscle, Percutaneous Approach (ICD-10-PCS; principal; 2016-10-28)
DX: I26.09 Other pulmonary embolism with acute cor pulmonale (principal); R07.9 Chest pain, unspecified; F17.210 Nicotine dependence, cigarettes, uncomplicated; Z83.2 Family history of diseases of the blood and blood-forming organs and certain disorders involving the immune mechanism; Z23 Encounter for immunization
CPT/HCPCS: 36415; 71020; 71275; 80048; 80053; 83516; 84484; 85014; 85018; 85025; 85027; 85049; 85220; 85301; 85305; 85520; 85610; 85730; 90732; 93005; 93010; 93970; 94760; 96372; 96374; 96375; 99285; 99406; J1170; J1644; J1885; J7042; Q9967

== ENCOUNTER → 2017-07-11 10:44 | Emergency (ER) | payer SELFPAY | END | disposition left against medical advice (07) | LOC: ED 10:44 | DX: I74.9 Embolism and thrombosis of unspecified artery (principal); Z53.21 Procedure and treatment not carried out due to patient leaving prior to being seen by health care provider ==